=== PATIENT | male | born 1975 | race Caucasian/White ===

== ENCOUNTER → 2017-10-11 | Outpatient (CLI) | payer OTHER ==
[~2017-10-11] MED LIST: CLR10 PO; PRLSR20 PO
[2017-10-11 13:25] LABS: ALT/SGPT 24 U/L (12-78); BASO % 0.2 %; BASO ABS # 0.03 K/uL (0-0.2); BLOOD UREA NITROGEN 11 mg/dl (7-18); BUN/CREATININE RATIO 12.1 (10-20); CALCIUM 9.3 mg/dl (8.5-10.1); CARBON DIOXIDE 30 mmol/L (21-32); CHLORIDE 101 mmol/L (98-107); CREATININE 0.93 mg/dl (0.60-1.40); EOS % 0.2 %; GLUCOSE 74 mg/dl (70-99); HEMATOCRIT 44.1 % (42-52); IG% 0.3 %; LYMPH % 8.8 %; LYMPH ABS # 1.07 K/uL (1.2-3.4); MEAN CORPUSCULAR HEMOGLOBIN 30.5 pg (25-34); MEAN PLATELET VOLUME 10.8 fL (7.4-10.4); MONO % 5.3 %; NEUT % 85.2 %; PLATELET COUNT 190 K/uL (130-400); RED BLOOD COUNT 5.25 M/uL (4.7-6.1); SODIUM 137 mmol/L (136-145)
[2017-10-11 13:30] LABS: ALB/GLOB RATIO 1.9 (0.9-2); ALKALINE PHOSPHATASE 48 U/L (45-117); AST/SGOT 25 U/L (15-37)
[2017-10-11 13:48] LABS: COMPLETE YES; MEAN CORPUSCULAR HGB CONC 36.3 g/dl (32-36)
== END | disposition home or self-care (01) ==
LOC: C.LABSPEC 12:40
PROVIDERS: ATTEND Physician Assistant Medical
DX: R42 Dizziness and giddiness (principal)